=== PATIENT | female | born 1955 | race Caucasian/White ===

== ENCOUNTER → 2019-03-23 | Outpatient (REF) | payer OTHER | LOC: M SFHCCLAY 11:26 | PROVIDERS: ATTEND Nurse Practitioner Family | DX: M20.42 Other hammer toe(s) (acquired), left foot (principal); M06.9 Rheumatoid arthritis, unspecified; Z53.8 Procedure and treatment not carried out for other reasons ==

== ENCOUNTER → 2019-03-31 | Outpatient (CLI) | payer BC, OTHER ==
[~2019-03-31] MED LIST: FOLI1TAB11 PO; HYDR-3713 PO; IBUP-1114 PO; METH2.5T48 PO
--- NOTE | 2019-04-01 02:41 | REP ---
Clinical: High risk factors. Smoker . Comparison: None . Technique: PA and lateral. Findings: The mediastinum and cardiac silhouette are normal. The lung treviño are clear and without acute consolidation, effusion, or pneumothorax. The skeletal structures are intact and normal. Impression: 1. No acute cardiopulmonary process.
--- NOTE | 2019-04-01 02:52 | REP ---
Clinical: Pain. Technique: AP, lateral, flexion/extension, bilateral oblique, open-mouth views of the cervical spine. Findings: Age-related osteopenia is appreciated along with very minimal disc space narrowing predominantly involving C5-6 and C6-7. Alignment and lordosis maintained. No acute fracture / compression injury or subluxation. Open mouth view demonstrates normal C1-C2 articulation and odontoid process. Oblique views demonstrate patent neural foramen. Impression: Age-related osteopenia and mild disc space narrowing.
== END ==
LOC: M CLY 10:24 → MERGE 10:24
PROVIDERS: ATTEND Nurse Practitioner Family
DX: M20.42 Other hammer toe(s) (acquired), left foot (principal); M50.322 Other cervical disc degeneration at C5-C6 level; M50.323 Other cervical disc degeneration at C6-C7 level; M25.78 Osteophyte, vertebrae; F17.200 Nicotine dependence, unspecified, uncomplicated

== ENCOUNTER 2019-04-21 06:02 | Day surgery (SDC) | payer BC, OTHER ==
[~2019-04-21] VITALS: Ht 157.5 cm; Wt 61.2 kg
[~2019-04-21 06:02] MED LIST changes: -HYDR-3713 PO; +LR 1,000 ML IV ONE
[2019-04-21] MEDS ORDERED: ceFAZolin 2 GM/D5W 50 ML IV BAG (J0690 PER 500MG) As Ordered ONE (06:35)
[2019-04-21] MEDS ORDERED: dexameTHASONE 4 MG/ML 1ML VIAL (J1100) As Ordered ONE ×2 (06:52→10:16)
[2019-04-21] MEDS ORDERED: LIDOCAINE 1% SDV INJ 30 ML VIAL As Ordered ONE (06:52)
[2019-04-21] MEDS ORDERED: BUPIVACAINE HCL 0.5% 10 ML VIAL As Ordered ONE (06:52)
[2019-04-21] MEDS ORDERED: LIDOCAINE 2% INJ 100 MG/5 ML SDV (FOR ANES.) As Ordered ONE (07:19)
[2019-04-21] MEDS ORDERED: PROPOFOL 200 MG/20 ML VIAL As Ordered ONE (07:19)
[2019-04-21] MEDS ORDERED: fentaNYL 100 MCG/2 ML INJECTION (J3010) As Ordered ONE ×2 (07:19→09:14)
[2019-04-21] MEDS ORDERED: ONDANSETRON 4MG/2ML VIAL (J2405) As Ordered ONE (07:19)
[2019-04-21] MEDS ORDERED: MIDAZOLAM INJ 2 MG/2 ML VIAL (J2250) As Ordered ONE (07:20)
[2019-04-21] MEDS ORDERED: ePHEDrine SULFATE 25 MG/5 ML(5MG/ML) SYRINGE As Ordered ONE ×2 (07:55→09:33)
[2019-04-21] MEDS ORDERED: PHENYLephrine HCL 500 MCG/5 ML (100MCG/ML) SYRINGE (J2370) As Ordered ONE (08:12)
[2019-04-21] MEDS ORDERED: KETOROLAC 60 MG/2 ML VIAL (J1885) As Ordered ONE (08:17)
[2019-04-21] MEDS ORDERED: ACETAMINOPHEN 1000MG 100ML IV BTL (OFIRMEV) (J0131 PER 10MG) As Ordered ONE (08:44)
[2019-04-21] MEDS ORDERED: HYDR-3713 PO (10:52)
[2019-04-21] MEDS ORDERED: ONDANSETRON 4MG/2ML VIAL (J2405) IV PRN (11:15)
[2019-04-21] MEDS ORDERED: PERCOCET 5MG/325MG TAB PO PRN (11:15)
[2019-04-21] MEDS ORDERED: LR 1,000 ML IV SCH (11:15)
--- NOTE | 2019-04-21 16:50 | REP ---
Foot series limited study: Single view. History: Fluoroscopic guidance in the OR. 16 seconds of fluoroscopy time is reported. Findings: No laterality markers are noted. A single fluoroscopically obtained last image hold spot radiograph of the foot documents metallic hardware positioning for each of the five toes. Electronically Signed by Elton Louie MD 04/21/2019 04:40 P
--- NOTE | 2019-04-22 23:38 | RO ---
DATE OF PROCEDURE: 04/21/2019 PREPROCEDURE DIAGNOSIS: Rheumatoid foot with severe right foot bunion, hammertoe and metatarsal deformities. POSTPROCEDURE DIAGNOSIS: Rheumatoid foot with severe right foot bunion, hammertoe and metatarsal deformities. PROCEDURE: Right foot 1st metatarsophalangeal joint fusion, metatarsal head resections metatarsals 2, 3, 4 and 5 and hammertoe correction toes 2, 3, 4 and 5. SURGEON: Vj Dykes DPM GLASS INSERTER: None. ANESTHESIA: LMA with preoperative injection of 20 mL of a 1:1 mixture of 1% lidocaine plain and 0.50% Marcaine plain. ESTIMATED BLOOD LOSS: 30 mL. SPECIMENS: Bone right foot. COMPLICATIONS: None. MATERIALS: #3-0 and #4-0 Vicryl, #4-0 nylon, 4.5 K-wires, 3.5 guidewire, and an Arthrex low profile MTP plate, titanium, with two 3 mm cortical screws and three 3.0 locking screws. INDICATIONS: Gracie Busch is a 64-year-old female who presents to [facility] with a complaint of painful right foot. She has rheumatoid arthritis with resulting severe deformities to her toes, including large bunion deformity, metatarsal deformity and hammertoes. These cause severe limitation and pain while walking. She presents today for surgical correction. The patient side and site were identified and marked in preoperative holding area, consent was reviewed and obtained. All risks, complications and alternatives to the procedure were explained to the patient in detail and all questions were answered. DESCRIPTION OF PROCEDURE: The patient was brought to the operating room and placed on the operating room table in supine position. General LMA anesthesia was delivered by the anesthesia team. Preoperative injection of 20 mL of a 1:1 mixture of 1% lidocaine plain and 0.50% Marcaine plain were injected in the right ankle. The right foot was prepped and draped in the normal sterile fashion. The patient received 2 grams of Ancef prior to procedure. Incisions were drawn. A dorsal incision over the 1st metatarsophalangeal joint and a dorsal incision over the 2nd and 4th interspace as well as dorsal incisions on the 2nd, 3rd, 4th and 5th toes. Attention was first paid to the 1st metatarsal. Dissection was carried down until the metatarsophalangeal joint was identified. There was essentially no capsule as it was very attenuated. There was partial fusion of the proximal phalanx to the metatarsal head with severe erosion and deformity. The bone was mobilized using freer and osteotome, and the head of the bone and base of the phalanx were debrided using cup and cone reamers, which allowed approximation of the toe into a more rectus position. A 3.0 guidewire was thrown from the distal toe into the metatarsal. It should be noted that there was essentially no cartilage to speak of on either side of the joint, and the bone was extremely soft. No compression screws could be used. A locking plate was placed on the dorsal aspect of the bones. This was locked with three 3.0 locking screws and two 3.0 cortical screws. Fair compression was noted across the joint surface. This area was irrigated with normal saline. Attention was then paid to the metatarsals. Through the dorsal incisions, dissection was carried down until each metatarsal was noted. Again, the distal portions of the metatarsals were severely eroded and narrowed without any cartilage. Metatarsals were resected with sagittal saw and removed. Following this, attention was paid to each toe, 2, 3, 4, and 5. Dorsal incisions were made and carried through with a #15 blade. Extensor tenotomy was performed at the proximal interphalangeal joint and the head of the proximal phalanx was removed with sagittal saw, and the cartilage from the middle phalanx base was removed with rongeur. 4.5 guidewires were then thrown from the distal toe into the remaining portion of the metatarsal shafts. Position was verified on C-arm. Sites were irrigated with normal saline. Tourniquet was deflated. The extensor tendons were repaired with #3-0 Vicryl, subcutaneous closure with #4-0 Vicryl, the capsule on the 1st metatarsal and subcutaneous tissues were closed with #3-0 Vicryl. Then, all skin incisions were closed with #4-0 nylon. There was good capillary refill noted to each toe. The wires were bent and cut. Sterile dressings were applied. The patient was brought to the post-anesthesia care unit (PACU), vital signs stable, neurovascular status intact. She will be partial weightbearing with a walker. She will followup in the office in 2 days. GERARDO
== END 2019-04-21 13:23 | disposition home or self-care (01) ==
LOC: M SDC 06:02 → MERGE 07:30 → EDUNIT# 07:30 → M SDC 13:23
PROVIDERS: ATTEND Podiatrist Foot & Ankle Surgery
DX: M21.611 Bunion of right foot (principal); M05.671 Rheumatoid arthritis of right ankle and foot with involvement of other organs and systems; M20.41 Other hammer toe(s) (acquired), right foot; F17.210 Nicotine dependence, cigarettes, uncomplicated; Z79.899 Other long term (current) drug therapy
CPT/HCPCS: 28114; 28285; 28750; 76000; 88300; 97116; C1713; J0131; J1100; J1885; J2250; J2370; J2405; J3010

== ENCOUNTER → 2019-05-14 | Outpatient (REF) | payer OTHER ==
[~2019-05-14] MED LIST changes: +HYDR-3713 PO; -LR 1,000 ML IV ONE
== END ==
LOC: M LAB REF 12:34
PROVIDERS: ATTEND Podiatrist Foot & Ankle Surgery
DX: L03.031 Cellulitis of right toe (principal)

== ENCOUNTER → 2024-03-31 | Outpatient (REF) | payer MEDICARE, BC ==
[~2024-03-31] MED LIST changes: +CLAR10CA3 PO; +HUMI40IN2 INJ
[2024-03-31 11:03] LABS: BASO % 0.7 % (0.0-1.0); EOS # 0.1 10^3/uL (0.0-0.5); EOS % 1.6 % (0.0-3.0); HEMATOCRIT 43.7 % (36.0-47.0); HEMOGLOBIN 14.3 g/dl (12.0-15.5); LYMPH # 1.8 10^3/uL (1.5-5.0); LYMPH % 31.7 % (24.0-44.0); MEAN CORPUSCULAR HEMOGLOBIN 29.5 pg (27.0-33.0); MEAN CORPUSCULAR HGB CONC 32.7 g/dl (32.0-36.5); MEAN CORPUSCULAR VOLUME 90.3 fl (80.0-96.0); MONO # 0.3 10^3/uL (0.0-0.8); MONO % 5.5 % (2.0-8.0); NEUTROPHILS # 3.4 10^3/uL (1.5-8.5); NEUTROPHILS % 60.3 % (36.0-66.0); PLATELET COUNT, AUTOMATED 255 10^3/uL (150-450); RED BLOOD COUNT 4.84 10^6/uL (4.00-5.40); WHITE BLOOD COUNT 5.6 10^3/uL (4.0-10.0)
[2024-03-31 11:14] LABS: FREE T4 1.17 NG/DL (0.89-1.76); THYROID STIMULATING HORMONE 1.529 uIU/ML (0.55-4.78)
[2024-03-31 11:22] LABS: ALBUMIN 3.7 G/DL (3.2-5.2); ALKALINE PHOSPHATASE 108 U/L (46-116); ALT/SGPT 19 U/L (7.0-40); AST/SGOT 12 U/L (<34); BILIRUBIN,TOTAL 0.3 MG/DL (0.3-1.2); BLOOD UREA NITROGEN 12 MG/DL (9-23); CALCIUM LEVEL 9.8 MG/DL (8.3-10.6); CARBON DIOXIDE LEVEL 24 MMOL/L (20-31); CHLORIDE LEVEL 111 MMOL/L (98-107); CHOLESTEROL LEVEL 206 MG/DL (<200); CHOLESTEROL RISK RATIO 5.73 (<5); CREATININE FOR GFR 0.82 MG/DL (0.55-1.30); GLOMERULAR FILTRATION RATE > 60.0 (>45); GLUCOSE, FASTING 103 MG/DL (74-106); HDL CHOLESTEROL 35.9 MG/DL (>40); LDL CHOLESTEROL 138.5 MG/DL (<100); NON-HDL-C 170.1 MG/DL; POTASSIUM SERUM 4.5 MMOL/L (3.5-5.1); SODIUM LEVEL 139 MMOL/L (136-145); TOTAL PROTEIN 7.6 G/DL (5.7-8.2); TRIGLYCERIDES LEVEL 158 MG/DL (<150)
[2024-03-31 11:40] LABS: HEMOGLOBIN A1c 5.4 % (4.0-6.0)
== END ==
LOC: M SFHCCLAY 08:24
PROVIDERS: ATTEND Nurse Practitioner Family
DX: J30.9 Allergic rhinitis, unspecified (principal); M06.9 Rheumatoid arthritis, unspecified; F17.200 Nicotine dependence, unspecified, uncomplicated; Z13.220 Encounter for screening for lipoid disorders; Z13.1 Encounter for screening for diabetes mellitus; Z79.899 Other long term (current) drug therapy

== ENCOUNTER 2024-04-14 07:10 | Day surgery (SDC) | payer MEDICARE, BC ==
[~2024-04-14] VITALS: Ht 157.5 cm; Wt 62.6 kg
[2024-04-14] MEDS: LIDOCAINE 3.5 % 1ML OPHTH TOPICAL GEL OU ONE (06:00)
[2024-04-14] MEDS: LIDOCAINE 1% SDV 5ML VIAL As Ordered ONE (07:05)
[2024-04-14] MEDS: BSS IRRIG/VANCO(10MG)/TOBRA(5MG)/EPINEPH(1:1000-0.5CC)500ML BAG-ORONLY As Ordered ONE (07:05)
[2024-04-14] MEDS: CEFUROXIME 1MG/0.1ML INTRACAMERAL INJ As Ordered ONE (07:06)
[~2024-04-14 07:10] MED LIST changes: +PHENYLEPHRINE 10% OPHTH SOL 5ML OS PRN
[2024-04-14] MEDS ORDERED: fentaNYL 100 MCG/2 ML INJECTION As Ordered ONE (07:26)
[2024-04-14] MEDS ORDERED: MIDAZOLAM INJ 2MG/2ML VIAL As Ordered ONE (07:26)
[2024-04-14] MEDS: ATROPINE SULFATE 1% OPHTH SOLN 2ML BTL OS SCH (08:23)
[2024-04-14] MEDS: OFLOXACIN 0.3 % (OCUFLOX) OPTH SOL 5ML OS ONE (08:23)
[2024-04-14] MEDS: PHENYLEPHRINE 2.5% OPHTH SOL 2ML OS SCH (08:23)
[2024-04-14] MEDS: TROPICAMIDE 1% OPHTH SOLN 15ML OS SCH (08:24)
[2024-04-14 09:39] VITALS: BP 124/69; TEMP 96.9; O2SAT 96
== END 2024-04-14 09:51 | disposition home or self-care (01) ==
LOC: M SDC 07:10
PROVIDERS: ATTEND Ophthalmology
DX: H25.12 Age-related nuclear cataract, left eye (principal); F17.218 Nicotine dependence, cigarettes, with other nicotine-induced disorders; Z92.21 Personal history of antineoplastic chemotherapy; M06.9 Rheumatoid arthritis, unspecified; Z79.899 Other long term (current) drug therapy
CPT/HCPCS: 66984; J0697; J2250; J3010; V2632

== ENCOUNTER 2024-04-28 08:20 | Day surgery (SDC) | payer MEDICARE, BC ==
[~2024-04-28] VITALS: Ht 157.5 cm; Wt 62.6 kg
[~2024-04-28 08:20] MED LIST changes: +PHENYLEPHRINE 10% OPHTH SOL 5ML OD PRN; -PHENYLEPHRINE 10% OPHTH SOL 5ML OS PRN
[2024-04-28] MEDS ORDERED: MIDAZOLAM INJ 2MG/2ML VIAL As Ordered ONE (08:25)
[2024-04-28] MEDS ORDERED: fentaNYL 100 MCG/2 ML INJECTION As Ordered ONE (08:25)
[2024-04-28] MEDS: ATROPINE SULFATE 1% OPHTH SOLN 2ML BTL OD SCH (09:03)
[2024-04-28] MEDS: PHENYLEPHRINE 2.5% OPHTH SOL 2ML OD SCH (09:04)
[2024-04-28] MEDS: LIDOCAINE 3.5 % 1ML OPHTH TOPICAL GEL OU ONE (09:04)
[2024-04-28] MEDS: OFLOXACIN 0.3 % (OCUFLOX) OPTH SOL 5ML OD ONE (09:04)
[2024-04-28] MEDS: TROPICAMIDE 1% OPHTH SOLN 15ML OD SCH (09:05)
[2024-04-28] MEDS: LIDOCAINE 1% SDV 5ML VIAL As Ordered ONE (09:53)
[2024-04-28] MEDS: CEFUROXIME 1MG/0.1ML INTRACAMERAL INJ As Ordered ONE (09:53)
[2024-04-28] MEDS: BSS IRRIG/VANCO(10MG)/TOBRA(5MG)/EPINEPH(1:1000-0.5CC)500ML BAG-ORONLY As Ordered ONE (09:53)
[2024-04-28 09:56] VITALS: BP 106/59; TEMP 97; O2SAT 95
== END 2024-04-28 10:15 | disposition home or self-care (01) ==
LOC: M SDC 08:20
PROVIDERS: ATTEND Ophthalmology
DX: H25.11 Age-related nuclear cataract, right eye (principal); M06.9 Rheumatoid arthritis, unspecified; F17.210 Nicotine dependence, cigarettes, uncomplicated; Z79.631 Long term (current) use of antimetabolite agent; Z79.620 Long term (current) use of immunosuppressive biologic
CPT/HCPCS: 66984; J0697; J2250; J3010; V2632

== ENCOUNTER → 2025-04-04 | Outpatient (REF) | payer MEDICARE, BC ==
[~2025-04-04] MED LIST changes: -PHENYLEPHRINE 10% OPHTH SOL 5ML OD PRN
[2025-04-04 18:28] LABS: ALT/SGPT 23.0 U/L (7.0-40); AST/SGOT 23.0 U/L (<34); CALCIUM LEVEL 9.6 MG/DL (8.3-10.6); CARBON DIOXIDE LEVEL 23.0 MMOL/L (20-31); CHLORIDE LEVEL 106.0 MMOL/L (98-107); CHOLESTEROL LEVEL 219.0 MG/DL (<200); CHOLESTEROL RISK RATIO 5.22 (<5); CREATININE FOR GFR 0.88 MG/DL (0.55-1.30); GLOMERULAR FILTRATION RATE 71.5 (>45); LDL CHOLESTEROL 139.7 MG/DL (<100); NON-HDL-C 177.1 MG/DL; POTASSIUM SERUM 4.5 MMOL/L (3.5-5.1); SODIUM LEVEL 140.0 MMOL/L (136-145); TRIGLYCERIDES LEVEL 187.0 MG/DL (<150)
[2025-04-04 18:29] LABS: FREE T4 1.36 NG/DL (0.89-1.76)
[2025-04-04 18:47] LABS: BASO # 0.1 10^3/uL (0.0-0.2); BASO % 1.1 % (0.0-1.0); EOS # 0.1 10^3/uL (0.0-0.5); EOS % 1.7 % (0.0-3.0); LYMPH # 2.8 10^3/uL (1.5-5.0); LYMPH % 42.4 % (24.0-44.0); MONO # 0.4 10^3/uL (0.0-0.8); MONO % 5.9 % (2.0-8.0); NEUTROPHILS # 3.2 10^3/uL (1.5-8.5); NEUTROPHILS % 48.7 % (36.0-66.0); PLATELET COUNT, AUTOMATED 265 10^3/uL (150-450)
[2025-04-04 19:00] LABS: ESTIMATED AVERAGE GLUCOSE 114.0 MG/DL (60-110)
== END ==
LOC: M SFHCCLAY 10:16
PROVIDERS: ATTEND Nurse Practitioner Family
DX: J30.9 Allergic rhinitis, unspecified (principal); M06.9 Rheumatoid arthritis, unspecified; F17.200 Nicotine dependence, unspecified, uncomplicated; Z13.1 Encounter for screening for diabetes mellitus; Z13.220 Encounter for screening for lipoid disorders; Z79.899 Other long term (current) drug therapy